=== PATIENT | male | born 1960 | race American Indian/Alaskan Native ===

== ENCOUNTER 2018-03-06 16:03 | Emergency (ER) | payer MEDICARE, BC ==
[2018-03-06 16:13] VITALS: BP 145/96
--- NOTE | 2018-03-06 19:05 | Emergency Department Report ---
ED General Adult HPI - General Chief complaint: Pain General Stated complaint: BILATERAL ARM PAIN/WEAKNESS Time Seen by Provider: 03/06/18 18:59 Source: patient Mode of arrival: Ambulatory Limitations: No Limitations - History of Present Illness Initial comments: Patient is a 57-year-old past medical history of obesity presents with bilateral arm pain has been going on for last couple days. Patient states that his pain is a 6 out of 10. It's an achy type of pain nothing makes it better and nothing makes it worse. Is single and on for the last 5 days. Patient states that it is a burning type of pain that's been going on for years. He states that he talk to his doctor and his doctor requested that he go to the ER to get a pain pill. Patient denies any chest pain and shortness of breath any nausea and no vomiting. - Related Data Previous Rx's Medication Instructions Recorded Last Taken Type Diclofenac Sodium [Voltaren] 100 gm TP Q8H #1 gel..gram. 03/06/18 Unknown Rx Allergies Allergy/AdvReac Type Severity Reaction Status Date / Time No Known Allergies Allergy Verified 03/06/18 16:07 ED Review of Systems ROS: Stated complaint: BILATERAL ARM PAIN/WEAKNESS Other details as noted in HPI Constitutional: denies: chills, fever Eyes: denies: eye pain, eye discharge, vision change ENT: denies: ear pain, throat pain Respiratory: denies: cough, shortness of breath, wheezing Cardiovascular: denies: chest pain, palpitations Endocrine: no symptoms reported Gastrointestinal: denies: abdominal pain, nausea, diarrhea Genitourinary: denies: urgency, dysuria Musculoskeletal: denies: back pain, joint swelling, arthralgia Skin: denies: rash, lesions Neurological: denies: headache, weakness, paresthesias Psychiatric: denies: anxiety, depression Hematological/Lymphatic: denies: easy bleeding, easy bruising ED Past Medical Hx - Past Medical History Previous Medical History?: Yes Hx Diabetes: Yes - Surgical History Past Surgical History?: No - Social History Smoking Status: Never Smoker Substance Use Type: None - Medications Home Medications: Home Medications Medication Instructions Recorded Confirmed Last Taken Type Diclofenac Sodium [Voltaren] 100 gm TP Q8H #1 gel..gram. 03/06/18 Unknown Rx ED Physical Exam - General Limitations: No Limitations General appearance: alert, in no apparent distress - Head Head exam: Present: atraumatic, normocephalic - Eye Eye exam: Present: normal appearance - ENT ENT exam: Present: mucous membranes moist - Neck Neck exam: Present: normal inspection - Respiratory Respiratory exam: Present: normal lung sounds bilaterally. Absent: respiratory distress - Cardiovascular Cardiovascular Exam: Present: regular rate, normal rhythm. Absent: systolic murmur, diastolic murmur, rubs, gallop - GI/Abdominal GI/Abdominal exam: Present: soft, normal bowel sounds - Rectal Rectal exam: Present: deferred - Extremities Exam Extremities exam: Present: normal inspection - Back Exam Back exam: Present: normal inspection - Neurological Exam Neurological exam: Present: alert, oriented X3 - Psychiatric Psychiatric exam: Present: normal affect, normal mood - Skin Skin exam: Present: warm, dry, intact, normal color. Absent: rash ED Course Vital Signs 03/06/18 16:07 Temperature 98.2 F Pulse Rate 95 H Respiratory 16 Rate Blood Pressure 145/96 O2 Sat by Pulse 95 Oximetry ED Medical Decision Making - Medical Decision Making Chief medical diagnosis: Neuropathy Differential medical diagnosis: Arthralgia, radiculoapthy I will send patient home with Voltaren cream. Discussed plan with patient and patient agrees with plan. Critical care attestation.: If time is entered above; I have spent that time in minutes in the direct care of this critically ill patient, excluding procedure time. ED Disposition Clinical Impression: Bilateral arm pain, Neuropathy Disposition: DC-01 TO HOME OR SELFCARE Is pt being admited?: No Does the pt Need Aspirin: No Condition: Stable Instructions: Diabetic Neuropathy (ED) Prescriptions: Diclofenac Sodium [Voltaren] 100 gm TP Q8H #1 gel..gram.
== END 2018-03-06 19:15 | disposition home or self-care (01) ==
LOC: ED 16:03
DX: E11.40 Type 2 diabetes mellitus with diabetic neuropathy, unspecified (principal)
CPT/HCPCS: 99282

== ENCOUNTER 2018-05-03 07:30 | Emergency (ER) | payer MEDICARE, BC ==
[2018-05-03 08:35] VITALS: BP 127/91
[2018-05-03] MEDS ORDERED: BOOSTRIX IM ONE (09:33)
--- NOTE | 2018-05-03 09:56 | Emergency Department Report ---
- General Chief complaint: Skin/Abscess/Foreign Body Stated complaint: ABSCESS Source: patient Mode of arrival: Ambulatory Limitations: No Limitations - History of Present Illness Initial comments: 57-year-old male with a past medical history of "Borderline diabetes" and diabetic neuropathy to the hospital with complaints of possible abscess. Patient noticed a swelling at his left upper posterior thigh yesterday and presumed to be a spider bite. Patient took a pin to pop this lesion but states only blood came out without pus. No complaints of fever. Pain is minimal and aggravated with palpation. Patient does not take any diabetic medication. Tetanus status unknown - Related Data Previous Rx's Medication Instructions Recorded Last Taken Type Diclofenac Sodium [Voltaren] 100 gm TP Q8H #1 gel..gram. 03/06/18 Unknown Rx Sulfamethoxazole/Trimethoprim 1 each PO BID #20 tablet 05/03/18 Unknown Rx [Bactrim DS TAB] Allergies Allergy/AdvReac Type Severity Reaction Status Date / Time No Known Allergies Allergy Verified 03/06/18 16:07 Abscess Boil HPI - HPI Chief Complaint: Skin/Abscess/Foreign Body Stated Complaint: ABSCESS Home Medications: Previous Rx's Medication Instructions Recorded Last Taken Type Diclofenac Sodium [Voltaren] 100 gm TP Q8H #1 gel..gram. 03/06/18 Unknown Rx Sulfamethoxazole/Trimethoprim 1 each PO BID #20 tablet 05/03/18 Unknown Rx [Bactrim DS TAB] Allergies/Adverse Reactions: Allergies Allergy/AdvReac Type Severity Reaction Status Date / Time No Known Allergies Allergy Verified 03/06/18 16:07 ED Review of Systems ROS: Stated complaint: ABSCESS Other details as noted in HPI Comment: All other systems reviewed and negative ED Past Medical Hx - Past Medical History Previous Medical History?: No Hx Diabetes: Yes Additional medical history: neuropathy - Surgical History Past Surgical History?: No - Social History Smoking Status: Current Some Day Smoker Substance Use Type: None - Medications Home Medications: Home Medications Medication Instructions Recorded Confirmed Last Taken Type Diclofenac Sodium [Voltaren] 100 gm TP Q8H #1 gel..gram. 03/06/18 Unknown Rx Sulfamethoxazole/Trimethoprim 1 each PO BID #20 tablet 05/03/18 Unknown Rx [Bactrim DS TAB] ED Physical Exam - General Limitations: No Limitations - Other Other exam information: General: No limitations, patient is alert in no acute distress Head exam: Atraumatic, normocephalic Eyes exam: Normal appearance ENT: Moist mucous membrane, normal oropharynx Neck exam: Normal inspection, full range of motion, no meningismus nontender Respiratory exam: Clear to auscultation bilateral, no wheezes, rales, crackles Cardiovascular: Normal rate and rhythm, normal heart sounds Abdomen: Soft, nondistended, and nontender, with normal bowel sounds, no rebound, or guarding Extremity: Full range of motion normal inspection no deformity Back: Normal Inspection, full range of motion, no tenderness Neurologic: Alert, oriented x3, cranial nerves intact, no motor or sensory deficit Psychiatric: normal affect, normal mood Skin: Left upper posterior thigh area of induration without erythema, warmth, fluctuance, or active drainage. Central healing puncture area noted ED Course Vital Signs 05/03/18 08:31 Temperature 98.1 F Pulse Rate 85 Respiratory 18 Rate Blood Pressure 127/91 O2 Sat by Pulse 96 Oximetry ED Medical Decision Making - Lab Data Lab Results 05/03/18 Range/Units 09:39 POC Glucose 113 H (70-105) - Medical Decision Making Patient appears to have an early abscess. We'll receive Bactrim given his history of borderline diabetes. Glucose is normal here. Warm compresses and outpatient follow-up will be recommended. Patient received tetanus prior to discharge. - Differential Diagnosis cellulitis, abscess, cyst Critical Care Time: No Critical care attestation.: If time is entered above; I have spent that time in minutes in the direct care of this critically ill patient, excluding procedure time. ED Disposition Clinical Impression: Abscess of leg, left Disposition: DC-01 TO HOME OR SELFCARE Is pt being admited?: No Does the pt Need Aspirin: No Condition: Stable Instructions: Abscess (ED) Additional Instructions: Continue warm compresses and antibiotics to encourage drainage. Return to the ER or your primary care doctor for further management if swelling or pain worsens Prescriptions: Sulfamethoxazole/Trimethoprim [Bactrim DS TAB] 1 each PO BID #20 tablet Referrals: your, doctor [Other] - 3-5 Days Print Language: LITHUANIAN
== END 2018-05-03 10:13 | disposition home or self-care (01) ==
LOC: ED 07:30
DX: L02.416 Cutaneous abscess of left lower limb (principal); E11.9 Type 2 diabetes mellitus without complications; F17.200 Nicotine dependence, unspecified, uncomplicated
CPT/HCPCS: 82962; 90471; 90715; 99282

== ENCOUNTER 2021-01-11 02:31 | Emergency (ER) | payer MEDICARE ==
[2021-01-11 02:42] VITALS: BP 126/99
--- NOTE | 2021-01-11 02:46 | Emergency Department Report ---
ED General Adult HPI - General Chief complaint: Wound/Laceration Stated complaint: LEG SWELLING PAIN SCARS BLISTERS Source: patient Mode of arrival: Ambulatory Limitations: No Limitations - History of Present Illness Initial comments: PT is a 60 y/o male with hx of DMII and recurrig cellulitis, is follow by [facility]. states bilat le ulcers x 2 months tx by dermatogy with abx cream, states not working anymore has follow up with same next week state ulcers are hurting. - Related Data Previous Rx's Medication Instructions Recorded Last Taken Type Diclofenac Sodium [Voltaren] 100 gm TP Q8H #1 gel..gram. 03/06/18 Unknown Rx Sulfamethoxazole/Trimethoprim 1 each PO BID #20 tablet 05/03/18 Unknown Rx [Bactrim DS TAB] Clindamycin [Clindamycin CAP] 300 mg PO Q8H 7 Days #21 cap 01/11/21 Unknown Rx Triamcinolone Aceton 0.1% (Nf) 1 applic TP BID #1 tube 01/11/21 Unknown Rx [Kenalog (NF)] Allergies Allergy/AdvReac Type Severity Reaction Status Date / Time No Known Allergies Allergy Verified 03/06/18 16:07 ED Review of Systems ROS: Stated complaint: LEG SWELLING PAIN SCARS BLISTERS Other details as noted in HPI Constitutional: denies: chills, fever Eyes: denies: eye pain, eye discharge, vision change ENT: denies: ear pain, throat pain Respiratory: denies: cough, shortness of breath, wheezing Cardiovascular: denies: chest pain, palpitations Endocrine: no symptoms reported Gastrointestinal: denies: abdominal pain, nausea, diarrhea Genitourinary: denies: urgency, dysuria Musculoskeletal: denies: back pain, joint swelling, arthralgia Skin: rash, lesions (bilat le, trunk back ) Neurological: denies: headache, weakness, paresthesias Psychiatric: denies: anxiety, depression Hematological/Lymphatic: denies: easy bleeding, easy bruising ED Past Medical Hx - Past Medical History Previous Medical History?: Yes Hx Diabetes: Yes Additional medical history: neuropathy, Obesity - Surgical History Past Surgical History?: Yes Additional Surgical History: circumsion - Social History Smoking Status: Never Smoker Substance Use Type: Alcohol - Medications Home Medications: Home Medications Medication Instructions Recorded Confirmed Last Taken Type Diclofenac Sodium [Voltaren] 100 gm TP Q8H #1 gel..gram. 03/06/18 Unknown Rx Sulfamethoxazole/Trimethoprim 1 each PO BID #20 tablet 05/03/18 Unknown Rx [Bactrim DS TAB] Clindamycin [Clindamycin CAP] 300 mg PO Q8H 7 Days #21 cap 01/11/21 Unknown Rx Triamcinolone Aceton 0.1% (Nf) 1 applic TP BID #1 tube 01/11/21 Unknown Rx [Kenalog (NF)] ED Physical Exam - General Limitations: No Limitations General appearance: alert, in no apparent distress - Head Head exam: Present: atraumatic, normocephalic - Eye Eye exam: Present: normal appearance, EOMI Pupils: Present: normal accommodation - ENT ENT exam: Present: mucous membranes moist - Neck Neck exam: Present: normal inspection - Respiratory Respiratory exam: Present: normal lung sounds bilaterally. Absent: respiratory distress, wheezes, stridor - Cardiovascular Cardiovascular Exam: Present: regular rate, normal rhythm. Absent: systolic murmur, diastolic murmur, rubs, gallop - GI/Abdominal GI/Abdominal exam: Present: soft. Absent: distended, tenderness - Rectal Rectal exam: Present: deferred - Extremities Exam Extremities exam: Present: full ROM, tenderness (bilat anterior lE), normal capillary refill, calf tenderness. Absent: pedal edema - Back Exam Back exam: Present: normal inspection, full ROM. Absent: CVA tenderness (R) - Neurological Exam Neurological exam: Present: alert, oriented X3, CN II-XII intact, normal gait, motor sensory deficit, reflexes normal - Psychiatric Psychiatric exam: Present: normal affect, normal mood - Skin Skin exam: Present: warm, dry, intact, erythema (bilat le, and trunk ). Absent: rash ED Course Vital Signs 01/11/21 02:40 Temperature 98.6 F Pulse Rate 95 H Respiratory 18 Rate Blood Pressure 126/99 O2 Sat by Pulse 94 Oximetry ED Medical Decision Making - Medical Decision Making this is cellulitis no fever chills, or weeping, on open wound, plan change abx to clindamycin po, and triamcinolone, pt will follow up with [facility] in 1-2 days. Critical care attestation.: If time is entered above; I have spent that time in minutes in the direct care of this critically ill patient, excluding procedure time. ED Disposition Clinical Impression: Cellulitis of left anterior lower leg Disposition: DC-01 TO HOME OR SELFCARE Is pt being admited?: No Does the pt Need Aspirin: No Condition: Stable Instructions: Cellulitis, Adult Additional Instructions: Follow up with [facility] Doctor in 1-2 days Prescriptions: Clindamycin [Clindamycin CAP] 300 mg PO Q8H 7 Days #21 cap Triamcinolone Aceton 0.1% (Nf) [Kenalog (NF)] 1 applic TP BID #1 tube Referrals: [facility] [Provider Group] - 3-5 Days Forms: Work/School Release Form(ED) Time of Disposition: 02:52
== END 2021-01-11 03:09 | disposition home or self-care (01) ==
LOC: ED 02:31
DX: L03.116 Cellulitis of left lower limb (principal); E11.9 Type 2 diabetes mellitus without complications; Z98.890 Other specified postprocedural states; Z79.2 Long term (current) use of antibiotics; Z79.899 Other long term (current) drug therapy
CPT/HCPCS: 99282